=== PATIENT | male | born 1995 | race Caucasian/White ===

== ENCOUNTER 2019-11-11 12:18 | Emergency (ER) | payer BC, SELFPAY ==
--- NOTE | 2019-11-11 13:57 | ER ---
Nurse's Notes [facility] Name: Reno Gomez Age: 24 yrs Sex: Male : 1995 Arrival Date: 11/11/2019 Time: 12:19 Bed 14 Private MD: Diagnosis: Influenza due to other identified influenza virus-B Presentation: 11/11 13:01 Presenting complaint:. Presenting complaint: Patient states: Headache, body aches and ss fever that began 11/07. Pt states, "I think I have the flu.". Transition of care: patient was not received from another setting of care. Onset of symptoms was November 07, 2019. Risk Assessment: Do you want to hurt yourself or someone else? Patient reports no desire to harm self or others. Initial Sepsis Screen: Does the patient have a suspected source of infection? No. Patient's initial sepsis screen is negative. Initial Sepsis Screen: Does the patient meet any 2 criteria? Temp <36.0*C (96.8*F)) or > 38.3*C (100.9*F). HR > 90 bpm. Does the patient have a suspected source of infection?. Note Mother reports that patient has been taking TAMIFLU and it isn't helping. Care prior to arrival: None. 13:01 Method Of Arrival: Ambulatory ss 13:01 Acuity: RALEIGH 4 ss Triage Assessment: 13:48 General: Appears in no apparent distress. uncomfortable, Behavior is calm, cooperative. ae4 Pain: Complains of pain in reports body aches. EENT: Throat is clear. EENT: Reports nasal congestion nasal discharge. Neuro: Level of Consciousness is awake, alert, obeys commands, Oriented to person, place, time, situation, Appropriate for age. Cardiovascular: Heart tones S1 S2 present Patient's skin is warm and dry. Respiratory: Airway is patent Respiratory effort is even, unlabored, Respiratory pattern is regular, symmetrical, Breath sounds are clear bilaterally. Respiratory: Reports cough that is. GI: Reports nausea, vomiting. : No signs and/or symptoms were reported regarding the genitourinary system. Derm: Skin is pale. Musculoskeletal: Reports Fatigue and body aches. Historical: - Allergies: 13:03 No Known Allergies; ss - Home Meds: 13:03 None [Active]; ss - PMHx: 13:03 None; ss - PSHx: 13:03 L leg; ss - Immunization history:: Adult Immunizations unknown. - Social history:: Smoking status: Patient/guardian denies using tobacco. - Ebola Screening: : Patient denies exposure to infectious person Patient denies travel to an Ebola-affected area in the 21 days before illness onset. Screenin:48 Abuse screen: Denies threats or abuse. Nutritional screening: No deficits noted. ae4 Tuberculosis screening: No symptoms or risk factors identified. Fall Risk None identified. Assessment: 14:21 Reassessment: Patient appears in no apparent distress at this time. Patient and/or ae4 family updated on plan of care and expected duration. Pain level reassessed. Patient states feeling better. 14:22 Reassessment: See full triage assessment. ae4 Vital Signs: 13:03 BP 106 / 67; Pulse 84; Resp 16; Temp 101.0; Pulse Ox 99% on R/A; Weight 63.5 kg; Height ss 5 ft. 6 in. (167.64 cm); Pain 10/10; 13:47 Temp 99.9(O); ae4 14:17 BP 118 / 68; Pulse 60; Resp 17; Temp 99.6; Pulse Ox 100% on R/A; mh5 13:03 Body Mass Index 22.60 (63.50 kg, 167.64 cm) ED Course: 12:19 Patient arrived in ED. as 12:32 Mer[facility]-C [facility]. snw 12:32 Reno Garcia MD is Attending Physician. snw 13:03 Triage completed. ss 13:03 Arm band placed on right wrist. ss 13:45 Manohar Souza, CHRISSIE is Primary Nurse. ae4 13:48 Bed in low position. Call light in reach. Side rails up X 1. Adult w/ patient. Pulse ox ae4 on. 14:24 No provider procedures requiring assistance completed. Patient did not have IV access ae4 during this emergency room visit. Administered Medications: 13:07 Drug: Motrin 600 mg Route: PO; ss 13:47 Follow up: Response: Temperature is decreased ae4 14:03 Drug: Phenergan 25 mg Route: PO; ae4 14:23 Follow up: Response: Medication administered at discharge. ae4 14:03 Drug: Tussionex Pennkinetic ER 5 ml Route: PO; ae4 14:22 Follow up: Response: Medication administered at discharge. ae4 14:04 Drug: predniSONE 40 mg Route: PO; ae4 14:23 Follow up: Response: Medication administered at discharge. ae4 14:04 Drug: Pepcid 20 mg Route: PO; ae4 14:23 Follow up: Response: Medication administered at discharge. ae4 Outcome: 13:55 Discharge ordered by . joseph 14:24 Discharged to home ambulatory, with family. ae4 14:24 Condition: stable 14:24 Discharge instructions given to patient, Instructed on discharge instructions, follow up and referral plans. Demonstrated understanding of instructions, Prescriptions given X 3. 14:24 Patient left the ED. ae4 Signatures: Merle Davis, MECHANICAL SYSTEMS CONTROL ENGINEER-C MECHANICAL SYSTEMS CONTROL ENGINEER-Sapna Argueta Shelby, RN RN ss Martinez, Maria [facility] Manohar Souza RN RN ae4
[2019-11-11] MEDS ORDERED: FAMOTIDINE 20 MG TAB ONE (13:58)
[2019-11-11] MEDS ORDERED: PROMETHAZINE 25 MG TABLET ONE (13:58)
[2019-11-11] MEDS ORDERED: predniSONE 20 MG TAB ONE (13:58)
[2019-11-11] MEDS ORDERED: HYDROCODONE/CHLORPHEN 5 ML/OSYR ONE (13:58)
--- NOTE | 2019-11-11 13:58 | EDPHYS ---
Physician Documentation [facility] Name: Reno Gomez Age: 24 yrs Sex: Male : 1995 Arrival Date: 11/11/2019 Time: 12:19 Bed 14 Private MD: ED Physician Maciej Garciay HPI: 11/11 16:11 This 24 yrs old Male presents to ER via Ambulatory with complaints of Flu snw Symptoms. 16:11 Onset: The symptoms/episode began/occurred suddenly, 5 day(s) ago. Associated signs and snw symptoms: Pertinent positives: congestion, cough, fever, sore throat, vomiting, malaise, bodyaches. Modifying factors: The patient symptoms are alleviated by nothing. It is unknown whether or not the patient has had similar symptoms in the past. It is unknown whether or not the patient has recently seen a physician. Historical: - Allergies: 13:03 No Known Allergies; ss - Home Meds: 13:03 None [Active]; ss - PMHx: 13:03 None; ss - PSHx: 13:03 L leg; ss - Immunization history:: Adult Immunizations unknown. - Social history:: Smoking status: Patient/guardian denies using tobacco. - Ebola Screening: : Patient denies exposure to infectious person Patient denies travel to an Ebola-affected area in the 21 days before illness onset. ROS: 16:08 Eyes: Negative for injury, pain, redness, and discharge. snw 16:08 Neck: Negative for injury, pain, and swelling, Cardiovascular: Negative for chest pain, palpitations, and edema. 16:08 Back: Negative for injury and pain, : Negative for injury, bleeding, discharge, and swelling, Skin: Negative for injury, rash, and discoloration, Neuro: Negative for headache, weakness, numbness, tingling, and seizure. 16:08 Constitutional: Positive for body aches, chills, fatigue, fever, malaise. 16:08 ENT: Positive for sinus congestion, sore throat. 16:08 Respiratory: Positive for cough. 16:08 Abdomen/GI: Positive for nausea and vomiting. 16:08 MS/extremity: Positive for bodyaches. Exam: 16:08 Constitutional: This is a well developed, well nourished patient who is awake, alert, snw and in no acute distress. Head/Face: Normocephalic, atraumatic. Eyes: Pupils equal round and reactive to light, extra-ocular motions intact. Lids and lashes normal. Conjunctiva and sclera are non-icteric and not injected. Cornea within normal limits. Periorbital areas with no swelling, redness, or edema. ENT: Nares patent. No nasal discharge, no septal abnormalities noted. Tympanic membranes are normal and external auditory canals are clear. Oropharynx with no redness, swelling, or masses, exudates, or evidence of obstruction, uvula midline. Mucous membranes moist. Neck: Trachea midline, no thyromegaly or masses palpated, and no cervical lymphadenopathy. Supple, full range of motion without nuchal rigidity, or vertebral point tenderness. No Meningismus. Chest/axilla: Normal chest wall appearance and motion. Nontender with no deformity. No lesions are appreciated. Cardiovascular: Regular rate and rhythm with a normal S1 and S2. No gallops, murmurs, or rubs. Normal PMI, no JVD. No pulse deficits. Respiratory: Lungs have equal breath sounds bilaterally, clear to auscultation and percussion. No rales, rhonchi or wheezes noted. No increased work of breathing, no retractions or nasal flaring. Abdomen/GI: Soft, non-tender, with normal bowel sounds. No distension or tympany. No guarding or rebound. No evidence of tenderness throughout. Back: No spinal tenderness. No costovertebral tenderness. Full range of motion. Skin: Warm, dry with normal turgor. Normal color with no rashes, no lesions, and no evidence of cellulitis. MS/ Extremity: Pulses equal, no cyanosis. Neurovascular intact. Full, normal range of motion. Neuro: Awake and alert, GCS 15, oriented to person, place, time, and situation. Cranial nerves II-XII grossly intact. Motor strength 5/5 in all extremities. Sensory grossly intact. Cerebellar exam normal. Normal gait. Psych: Awake, alert, with orientation to person, place and time. Behavior, mood, and affect are within normal limits. Vital Signs: 13:03 BP 106 / 67; Pulse 84; Resp 16; Temp 101.0; Pulse Ox 99% on R/A; Weight 63.5 kg; Height ss 5 ft. 6 in. (167.64 cm); Pain 10/10; 13:47 Temp 99.9(O); ae4 14:17 BP 118 / 68; Pulse 60; Resp 17; Temp 99.6; Pulse Ox 100% on R/A; mh5 13:03 Body Mass Index 22.60 (63.50 kg, 167.64 cm) ss MDM: 13:32 Patient medically screened. slick 16:09 Data reviewed: vital signs, nurses notes. Data interpreted: Pulse oximetry: on room air snw is 100 %. Interpretation: normal. Counseling: I had a detailed discussion with the patient and/or guardian regarding: the historical points, exam findings, and any diagnostic results supporting the discharge/admit diagnosis, lab results, the need for outpatient follow up, to return to the emergency department if symptoms worsen or persist or if there are any questions or concerns that arise at home. Special discussion: Based on the history and exam findings, there is no indication for further emergent testing or inpatient evaluation. I discussed with the patient/guardian the need to see the primary care provider for further evaluation of the symptoms. ED course: pt started Tamiflu 24 hours post s/s, but "it didn't do anything". 11/11 13:04 Order name: Flu; Complete Time: 13:27 ss 11/11 13:04 Order name: Strep; Complete Time: 13:27 ss 11/11 13:28 Order name: Throat Culture EDMS Administered Medications: 13:07 Drug: Motrin 600 mg Route: PO; ss 13:47 Follow up: Response: Temperature is decreased ae4 14:03 Drug: Phenergan 25 mg Route: PO; ae4 14:23 Follow up: Response: Medication administered at discharge. ae4 14:03 Drug: Tussionex Pennkinetic ER 5 ml Route: PO; ae4 14:22 Follow up: Response: Medication administered at discharge. ae4 14:04 Drug: predniSONE 40 mg Route: PO; ae4 14:23 Follow up: Response: Medication administered at discharge. ae4 14:04 Drug: Pepcid 20 mg Route: PO; ae4 14:23 Follow up: Response: Medication administered at discharge. ae4 Disposition: 11/11/19 13:55 Discharged to Home. Impression: Influenza due to other identified influenza virus - B. - Condition is Stable. - Discharge Instructions: Influenza, Adult, Muscle Pain, Adult, Nausea, Adult, Cough, Adult, Rehydration, Adult. - Prescriptions for Prednisone 20 mg Oral Tablet - take 2 tablet by ORAL route once daily for 5 days; 10 tablet. Pepcid 20 mg Oral Tablet - take 1 tablet by ORAL route once daily; 20 tablet. promethazine 25 mg Oral Tablet - take 1 tablet by ORAL route every 6 hours As needed; 20 tablet. - Work release form, Medication Reconciliation Form, Thank You Letter, Antibiotic Education, Prescription Opioid Use form. - Follow up: Emergency Department; When: As needed; Reason: Worsening of condition. Follow up: Private Physician; When: 2 - 3 days; Reason: Recheck today's complaints, Continuance of care, Re-evaluation by your physician. Addendum: 11/19/2019 11:04 Co-signature as Attending Physician, Reno Garcia MD I agree with the assessment and c brewer plan of care. Signatures: Dispatcher [employer] EDNE Reno Garcia MD MD cha Therrien, Shelly, REVENUE INSPECTOR-C REVENUE INSPECTOR-Csnw Alissa Saab RN RN Manohar Souza RN RN ae4 Corrections: (The following items were deleted from the chart) 11/11 14:24 13:55 11/11/2019 13:55 Discharged to Home. Impression: Influenza due to other ae4 identified influenza virus - B. Condition is Stable. Forms are Medication Reconciliation Form, Thank You Letter, Antibiotic Education, Prescription Opioid Use. Follow up: Emergency Department; When: As needed; Reason: Worsening of condition. Follow up: Private Physician; When: 2 - 3 days; Reason: Recheck today's complaints, Continuance of care, Re-evaluation by your physician. snw
[2019-11-11 14:37] VITALS: BP 118/68; TEMP 99.6; O2SAT 100
== END 2019-11-11 14:24 | disposition home or self-care (01) ==
LOC: ER 12:18
DX: J10.1 Influenza due to other identified influenza virus with other respiratory manifestations (principal)
CPT/HCPCS: 87070; 87081; 87804; 99283; J7512; Q0169

== ENCOUNTER 2023-03-23 06:58 | Emergency (ER) | payer BC, SELFPAY ==
[2023-03-23 07:33] LABS: Hematocrit 39.6 % (39.6-49.0); MCV 83.7 fL (80-100); MPV 6.1 fL (7.6-11.3); RBC Red Blood Cell Count 4.73 M/uL (4.33-5.43)
--- NOTE | 2023-03-23 07:44 | RAD REPORT ---
EXAM DESCRIPTION: CTAbdomen Pelvis W Contrast - 03/23/2023 7:33 am CLINICAL HISTORY: ABD PAIN COMPARISON: No comparisons TECHNIQUE: CT of the abdomen and pelvis was performed. All CT scans are performed using dose optimization technique as appropriate and may include automated exposure control or mA/KV adjustment according to patient size. FINDINGS: Lower chest: No acute abnormality. Liver: No acute abnormality or suspicious lesions. Biliary: No biliary ductal dilatation. Stomach: No significant focal abnormality. Duodenum: No significant focal abnormality. Pancreas: No significant abnormality. Spleen: No significant abnormality. Adrenal: No suspicious lesions. Kidney/ureter: No hydronephrosis. No renal calculi. Retroperitoneum: No retroperitoneal adenopathy. Vascular: No aneurysm. Bowel: Wall thickening of the transverse colon to the rectum.. Normal appendix Peritoneum: No ascites or free air. Bladder: Grossly unremarkable. Reproductive: No adnexal masses. Bones: No acute fracture. Other: n/a IMPRESSION: Possible mild colitis extending from the transverse colon to the rectum. Normal appendix .
[2023-03-23 07:46] LABS: Albumin 4.3 g/dL (3.4-5.0); Bilirubin Total 0.6 mg/dL (0.2-1.0); Potassium 3.8 mEq/L (3.5-5.1); Protein, Total 8.9 g/dL (6.4-8.2)
[2023-03-23] MEDS ORDERED: FAMOTIDINE 20 MG/2 ML VIAL IV ONE (08:08)
[2023-03-23] MEDS ORDERED: MORPHINE 4 MG/ML SYR ONE (08:08)
[2023-03-23] MEDS ORDERED: ONDANSETRON 4 MG/2 ML VIAL ONE (08:08)
[2023-03-23] MEDS ORDERED: NA CHLORIDE 0.9% 1,000 ML ONE (08:09)
--- NOTE | 2023-03-23 08:11 | EDPHYS ---
Physician Documentation [facility] Name: Reno Gomez Age: 27 yrs Sex: Male : 1995 Arrival Date: 03/23/2023 Time: 06:58 Bed 4 Private MD: ED Physician Danny Goldberg HPI: 03/23 07:17 This 27 yrs old Male presents to ER via Ambulatory with complaints of Abdominal Pain. ms3 07:17 27-year-old male with no past medical history presents for periumbilical abdominal ms3 pain. Patient states the pain began yesterday. Patient rates his pain a 9/10. Patient states the pain is better when laying down. Patient denies aggravating factors. Patient denies nausea, vomiting, fever. Patient endorses diarrhea.. Historical: - Allergies: 07:11 No Known Allergies; iw - Home Meds: 07:11 None [Active]; iw - PMHx: 07:11 None; iw ROS: 07:17 Constitutional: Negative for fever, and chills. Neck: Negative for injury, pain, and ms3 swelling, Cardiovascular: Negative for chest pain, and palpitations. Respiratory: Negative for shortness of breath, cough, wheezing, and pleuritic chest pain. 07:17 MS/Extremity: Negative for injury and deformity, Skin: Negative for injury, rash, and discoloration. 07:17 Abdomen/GI: Positive for abdominal pain, diarrhea, Negative for nausea and vomiting. 07:17 All other systems are negative. Exam: 07:17 Constitutional: This is a well developed, well nourished patient who is awake, alert, ms3 and in no acute distress. Head/Face: Normocephalic, atraumatic. Neck: Trachea midline, no cervical lymphadenopathy. Supple, full range of motion without nuchal rigidity, or vertebral point tenderness. No Meningismus. Chest/axilla: Normal chest wall appearance and motion. Nontender with no deformity. Cardiovascular: Regular rate and rhythm with a normal S1 and S2. No gallops, murmurs, or rubs. Normal PMI, no JVD. No pulse deficits. Respiratory: Lungs have equal breath sounds bilaterally, clear to auscultation and percussion. No rales, rhonchi or wheezes noted. No increased work of breathing, no retractions or nasal flaring. 07:17 Abdomen/GI: Inspection: abdomen appears normal, Bowel sounds: normal, Palpation: mild abdominal tenderness, in the right lower quadrant. Vital Signs: 07:10 BP 124 / 80; Pulse 56; Resp 16; Pulse Ox 100% on R/A; iw MDM: 07:16 Patient medically screened. ms3 08:18 Differential diagnosis: bowel obstruction, gastritis, non-specific abd pain, ms3 pancreatitis. Data reviewed: vital signs, nurses notes, lab test result(s), radiologic studies, and as a result, I will discharge patient. 03/23 07:15 Order name: CBC with Diff; Complete Time: 08:02 ms3 03/23 07:15 Order name: CMP; Complete Time: 08:02 ms3 03/23 07:15 Order name: Lipase; Complete Time: 08:02 ms3 03/23 07:15 Order name: CT Abd/Pelvis - IV Contrast Only; Complete Time: 08:02 ms3 03/23 07:15 Order name: IV Saline Lock; Complete Time: 07:17 ms3 03/23 07:15 Order name: Labs collected and sent; Complete Time: 07:17 ms3 Administered Medications: 08:08 Drug: NS 0.9% IV 1000 ml Route: IV; Rate: 1 bolus; Site: left antecubital; iw 09:15 Follow up: IV Status: Completed infusion iw 08:08 Drug: Famotidine IVP 20 mg Route: IVP; Site: left antecubital; iw 09:00 Follow up: Response: No adverse reaction iw 08:08 Drug: Ondansetron IVP 4 mg Route: IVP; Site: left antecubital; iw 08:30 Follow up: Response: No adverse reaction iw 09:21 Not Given (Patient Refused): morphine IVP or IV 4 mg IVP once over 4 mins kc6 09:21 Drug: Ketorolac IVP 10 mg 10 mg Route: IVP; Site: left antecubital; kc6 09:30 Follow up: Response: No adverse reaction iw 09:21 Drug: Dicyclomine PO 10 mg Route: PO; kc6 09:30 Follow up: Response: No adverse reaction iw Disposition Summary: 03/23/23 08:10 Discharge Ordered Location: Home ms3 Condition: Stable ms3 Diagnosis - Left sided colitis ms3 - Abdominal pain, unspecified ms3 Followup: ms3 - With: Milton Beaulieu DO - When: 2 - 3 days - Reason: Recheck today's complaints Discharge Instructions: - Discharge Summary Sheet ms3 - Abdominal Pain, Adult ms3 - Colitis ms3 Forms: - Work release form rg4 - Medication Reconciliation Form ms3 - Thank You Letter ms3 - Antibiotic Education ms3 - Prescription Opioid Use ms3 Prescriptions: - dicyclomine 10 mg Oral capsule - take 1 capsule by ORAL route 4 times per day as needed for abdominal pain; 20 ms3 capsule; Refills: 0, Product Selection Permitted - Augmentin 875-125 mg Oral Tablet - take 1 tablet by ORAL route every 12 hours for 10 days; 20 tablet; Refills: 0, ms3 Product Selection Permitted Signatures: Dispatcher [employer] Ciera Solitario, RN Danny Head, DO ms3 Rocio Sweeney RN RN kc6
--- NOTE | 2023-03-23 08:11 | ER ---
Nurse's Notes [facility] Name: Reno Gomez Age: 27 yrs Sex: Male : 1995 Arrival Date: 03/23/2023 Time: 06:58 Bed 4 Private MD: Diagnosis: Left sided colitis;Abdominal pain, unspecified Presentation: 03/23 07:10 Chief complaint: Patient states: mid abd pain since yesterday , +diarrhea, no vomiting. iw Coronavirus screen: At this time, the client does not indicate any symptoms associated with coronavirus-19. Ebola Screen: Patient negative for fever greater than or equal to 101.5 degrees Fahrenheit, and additional compatible Ebola Virus Disease symptoms Patient denies exposure to infectious person. Patient denies travel to an Ebola-affected area in the 21 days before illness onset. No symptoms or risks identified at this time. Initial Sepsis Screen: Does the patient meet any 2 criteria? No. Patient's initial sepsis screen is negative. Does the patient have a suspected source of infection? No. Patient's initial sepsis screen is negative. Risk Assessment: Do you want to hurt yourself or someone else? Patient reports no desire to harm self or others. Onset of symptoms was March 22, 2023. 07:10 Method Of Arrival: Ambulatory iw 07:10 Acuity: RALEIGH 3 iw Triage Assessment: 09:00 General: Appears in no apparent distress. Behavior is calm, cooperative. iw Historical: - Allergies: 07:11 No Known Allergies; iw - Home Meds: 07:11 None [Active]; iw - PMHx: 07:11 None; iw Screenin:30 [facility] ED Fall Risk Assessment (Adult) History of falling in the last 3 months, iw including since admission. Abuse screen: Denies threats or abuse. Denies injuries from another. Nutritional screening: No deficits noted. Tuberculosis screening: No symptoms or risk factors identified. Assessment: 07:15 General: Appears in no apparent distress. Behavior is calm, cooperative. Pain: iw Complains of pain in right lower quadrant. Neuro: Level of Consciousness is awake, alert, obeys commands, Oriented to person, place, time, situation, Moves all extremities. Full function. Respiratory: Respiratory effort is even, unlabored, Respiratory pattern is. GI: Abdomen is flat, Bowel sounds present X 4 quads. Abd is soft X 4 quads. Musculoskeletal: Range of motion: intact in all extremities. Vital Signs: 07:10 BP 124 / 80; Pulse 56; Resp 16; Pulse Ox 100% on R/A; iw ED Course: 07:00 Patient arrived in ED. ts1 07:02 Danny Goldberg DO is Attending Physician. ms3 07:10 Ciera Cruz RN is Primary Nurse. iw 07:11 Triage completed. iw 07:11 Arm band placed on. iw 07:35 CT Abd/Pelvis - IV Contrast Only In Process Unspecified. EDMS 08:08 Milton Beaulieu DO is Referral Physician. ms3 09:29 No provider procedures requiring assistance completed. IV discontinued, intact, kc6 bleeding controlled, No redness/swelling at site. Pressure dressing applied. Administered Medications: 08:08 Drug: NS 0.9% IV 1000 ml Route: IV; Rate: 1 bolus; Site: left antecubital; iw 09:15 Follow up: IV Status: Completed infusion iw 08:08 Drug: Famotidine IVP 20 mg Route: IVP; Site: left antecubital; iw 09:00 Follow up: Response: No adverse reaction iw 08:08 Drug: Ondansetron IVP 4 mg Route: IVP; Site: left antecubital; iw 08:30 Follow up: Response: No adverse reaction iw 09:21 Not Given (Patient Refused): morphine IVP or IV 4 mg IVP once over 4 mins kc6 09:21 Drug: Ketorolac IVP 10 mg 10 mg Route: IVP; Site: left antecubital; kc6 09:30 Follow up: Response: No adverse reaction iw 09:21 Drug: Dicyclomine PO 10 mg Route: PO; kc6 09:30 Follow up: Response: No adverse reaction iw Medication: 07:15 VIS not applicable for this client. iw Outcome: 08:10 Discharge ordered by MD. ms3 09:28 Discharged to home ambulatory, with family. iw 09:28 Condition: good 09:28 Discharge instructions given to patient, Instructed on discharge instructions, follow up and referral plans. Demonstrated understanding of instructions, follow-up care, medications, Prescriptions given X 2. 09:30 Patient left the ED. kc6 Signatures: Dispatcher [employer] EDMS Ciera Cruz RN RN iw Danny Goldberg DO DO ms3 Rocio Sweeney, RN RN kc6 Mouna Suero, MARTHA PAS ts1
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
[2023-03-23] MEDS ORDERED: DICYCLOMINE HCL 10 MG CAP ONE (09:23)
[2023-03-23] MEDS ORDERED: KETOROLAC 30 MG/ML INJ ONE (09:23)
[2023-03-23 09:34] VITALS: BP 124/80; O2SAT 100
== END 2023-03-23 09:30 | disposition home or self-care (01) ==
LOC: ER 06:58
DX: K51.50 Left sided colitis without complications (principal)
CPT/HCPCS: 85025; 36415; 83690; 80053; 74177; Q9967; J2405; J7030